=== PATIENT | male | born 1955 | race Caucasian/White ===

== ENCOUNTER 2017-02-28 17:27 | Observation (INO) | payer MEDICARE, OTHER ==
[2017-02-28] MEDS ORDERED: 0.9 % SODIUM CHLORIDE 1,000 ML IV ONE ×2 (17:36→18:58)
[2017-02-28 18:30] LABS: APPEARANCE,URINE Clear (CLEAR); COLOR,URINE Yellow (YELLOW); OCCULT BLOOD,URINE Negative (NEGATIVE); PH URINE 5.5 (5.0 - 8.0)
[2017-02-28 18:32] LABS: BASOPHILS % 0.5 (0.0-1.5); EOSINOPHILS % 0.4 % (0.0-6.8); MEAN CORPUSCULAR HEMOGLOBIN 29.6 pg (28.0-34.0); MEAN CORPUSCULAR VOLUME 86.5 fl (80.0-100.0); MONOCYTES % 3.5 % (0.0-11.0); NEUTROPHILS # 14.8 # k/uL (1.4-7.7)
[2017-02-28 18:41] LABS: eGFR (African) > 60; eGFR (Non-African) > 60
[2017-02-28] MEDS ORDERED: LISINOPRIL 20 MG TABLET PO ONE (21:44)
[2017-02-28 21:49] VITALS: BMI 38.0
--- NOTE | 2017-02-28 22:07 | ED Physician Documentation ---
General Adult - HISTORIAN Historian: patient - HPI Stated Complaint: found with altered mental status Chief Complaint: General Adult Onset: hours Timing: better Further Comments: yes (61 year old male patient brought in via [facility]. Neighbor found patient on the floor at home unresponsive and called 911 around 1700. Patient states he remembers taking a shower between 2765-2150 and sitting in the reclincer. On arrival, patient refused all treatments, IV and lab. Risks and benifits discussed.) - ROS CONST: no problems EYES/ENT: none CVS/RESP: none GI/: none MS/SKIN/LYMPH: none NEURO/PSYCH: fainting, other (All systems negative per patient). denies: headache, dizziness - PAST HX Past History: hypertension Other History: diabetes Type 2, other (dementia) Allergies/Adverse Reactions: Allergies Allergy/AdvReac Type Severity Reaction Status Date / Time Penicillins Allergy Verified 02/28/17 17:36 Home Medications: Ambulatory Orders Medication Instructions Recorded Insulin Aspart [Novolog] 65 units SQ AC15 04/30/14 Lisinopril [Lisinopril] 40 mg PO D 04/30/14 Canagliflozin [Invokana] 300 mg PO DAILY 02/28/17 Duloxetine HCl [Duloxetine HCl] 40 mg PO DAILY 02/28/17 Hydrochlorothiazide [Hydrodiuril] 12.5 mg PO DAILY 02/28/17 Insulin Glargine,Hum.rec.anlog 60 units SUBCUT BID 02/28/17 [Lantus Solostar] Memantine HCl [Memantine HCl] 10 mg PO BID 02/28/17 Metoprolol Tartrate [Lopressor] 25 mg PO BID 02/28/17 Pravastatin Sodium [Pravastatin 40 mg PO DAILY 02/28/17 Sodium] Zonisamide [Zonegran] 100 mg PO HS 02/28/17 - SOCIAL HX Smoking History: cigarettes - FAMILY HX Family History: No - VITAL SIGNS Vital Signs: Vital Signs Temp Pulse Resp BP Pulse Ox 97.7 F 89 18 183/85 95 02/28/17 19:39 02/28/17 19:39 02/28/17 19:39 02/28/17 19:39 02/28/17 19:39 - REVIEWED ASSESSMENTS Nursing Assessment Reviewed: Yes Vitals Reviewed: Yes Progress - Progress Progress: Brother and sister in law at bedside, patient much more cooperative, agreed to lab and IV. patient reports he is in a study at the [facility], "keep my blood sugars in the 50s" Reviewed lab results with patient, recommended admission or transfer to [facility] for further monitoring and IV fluids. Patient refused transfer. Will admit at [facility]. - EKG/XRAY/CT EKG: rhythm (SR, no acute changes. ) ED Results Lab/Radiology - Lab Results Lab Results: Lab Results 02/28/17 02/28/17 02/28/17 18:15 18:15 18:15 WBC 16.74 K/ul H K/ul (4.00-12.00) RBC 5.39 M/ul H M/ul (3.90-5.20) Hgb 15.9 g/dL g/dL (12.0-18.0) Hct 46.7 % % (37.0-53.0) MCV 86.5 fl fl (80.0-100.0) MCH 29.6 pg pg (28.0-34.0) MCHC 34.2 g/dL g/dL (30.0-36.0) RDW 13.4 % % (11.3-14.3) Plt Count 227 K/mm3 K/mm3 (130-400) Neut % (Auto) 88.3 % H % (39.0-79.0) Lymph % (Auto) 6.7 % L % (16.0-50.0) [place] % (Auto) 3.5 % % (0.0-11.0) Eos % (Auto) 0.4 % % (0.0-6.8) Baso % (Auto) 0.5 (0.0-1.5) Neut # (Auto) 14.8 # k/uL H # k/uL (1.4-7.7) Lymph # (Auto) 1.1 # k/uL # k/uL (0.6-4.0) [place] # (Auto) 0.6 # k/uL # k/uL (0.0-0.9) Eos # (Auto) 0.1 # k/uL # k/uL (0.0-0.6) Baso # (Auto) Pending Reactive Lymphs % 0.7 % % (0.0-5.0) Reactive Lymphs # 0.1 # k/uL # k/uL (0.0-0.8) Sodium 136 mmol/L mmol/L (136-145) Potassium 3.8 mmol/L mmol/L (3.5-5.0) Chloride 102 mmol/L mmol/L (98-110) Carbon Dioxide 22 mmol/L mmol/L (20-32) BUN 19 mg/dL mg/dL (10-26) Creatinine 0.8 mg/dL mg/dL (0.4-1.5) Estimated Creat Clear 178 Est GFR ( Amer) > 60 (60 - ) Est GFR (Non-Af Amer) > 60 (60 - ) Glucose 106 mg/dL H mg/dL (70-99) Calcium 10.3 mg/dL mg/dL (8.5-10.5) Total Bilirubin 0.5 mg/dL mg/dL (0.2-1.2) AST 36 U/L U/L (0-41) ALT 38 U/L U/L (0-45) Alkaline Phosphatase 105 U/L U/L (46-116) Creatine Kinase 656 U/L H U/L (0-225) Troponin I < 0.03 ng/mL L ng/mL (0.03-0.06) Total Protein 8.3 g/dL g/dL (6.0-8.5) Albumin 5.1 g/dL g/dL (3.0-5.5) Urine Color Urine Appearance Urine pH Ur Specific [place] Urine Protein Urine Ketones Urine Occult Blood Urine Nitrite Urine Bilirubin Urine Urobilinogen Ur Leukocyte Esterase Urine Glucose 02/28/17 18:15 WBC RBC Hgb Hct MCV MCH MCHC RDW Plt Count Neut % (Auto) Lymph % (Auto) [place] % (Auto) Eos % (Auto) Baso % (Auto) Neut # (Auto) Lymph # (Auto) [place] # (Auto) Eos # (Auto) Baso # (Auto) Reactive Lymphs % Reactive Lymphs # Sodium Potassium Chloride Carbon Dioxide BUN Creatinine Estimated Creat Clear Est GFR ( Amer) Est GFR (Non-Af Amer) Glucose Calcium Total Bilirubin AST ALT Alkaline Phosphatase Creatine Kinase Troponin I Total Protein Albumin Urine Color Yellow (YELLOW) Urine Appearance Clear (CLEAR) Urine pH 5.5 (5.0 - 8.0) Ur Specific [place] 1.020 (1.010-1.030) Urine Protein Trace mg/dL mg/dL (NEGATIVE) Urine Ketones Negative mg/dL mg/dL (NEGATIVE) Urine Occult Blood Negative (NEGATIVE) Urine Nitrite Negative (NEGATIVE) Urine Bilirubin Negative (NEGATIVE) Urine Urobilinogen 1.0 Eu Eu (0.2-1.0) Ur Leukocyte Esterase Negative (NEGATIVE) Urine Glucose 2+ mg/dL H mg/dL (NEGATIVE) - Orders Orders: ED Orders Category Date Time Status Continuous EKG monitoring Q2 Care 02/28/17 17:36 Active Continuous Pulse Oximetry Q4 Care 02/28/17 17:[address] IV Lock 1T Care 02/28/17 17:36 Active CBC/PLATELET/DIFF Stat Lab 02/28/17 18:15 Results CMP Stat Lab 02/28/17 18:15 Completed CREATINE KINASE Stat Lab 02/28/17 18:15 Completed TROPONIN I (cTnI) Stat Lab 02/28/17 18:15 Completed UA W/MICRO IF INDICATED Stat Lab 02/28/17 18:15 Completed 0.9 % Sodium Chloride [Normal Saline] 1,000 ml Med 02/28/17 17:36 Discontinued IV NOW 0.9 % Sodium Chloride [Normal Saline] 1,000 ml Med 02/28/17 18:58 Active IV NOW EKG WITH COMPARISON Stat Ther 02/28/17 18:44 Ordered General Adult Physical Exam - PHYSICAL EXAM GENERAL APPEARANCE: mild distress EENT: eye inspection normal, ENT inspection normal, pharynx normal, no signs of dehydration, SACHIN, no nystagmus, TM's nml RESPIRATORY: no resp distress, chest non-tender, breath sounds normal CVS: reg rate & rhythm, heart sounds normal, equal pulses, no murmur, no gallop , PMI nml, no JVD, no friction rub, 24 ABDOMEN: soft, no organomegaly, normal bowel sounds, no abdominal bruit, no distension BACK: normal inspection, no CVA tenderness SKIN: normal color, diaphoresis EXTREMITIES: non-tender, normal range of motion, no evidence of injury, no edema , J, 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 NEURO: oriented X3, motor nml, sensation nml, mood/affect nml (uncooperative) Discharge Clincal Impression: Rhabdomyolysis Qualifiers: Rhabdomyolysis type: non-traumatic Qualified Code(s): M62.82 - Rhabdomyolysis Syncope Qualifiers: Syncope type: unspecified Qualified Code(s): R55 - Syncope and collapse Diabetes Qualifiers: Diabetes mellitus type: type 2 Diabetes mellitus complication status: with hypoglycemia Diabetes mellitus complication detail: without coma Diabetes mellitus long term acute care registered nurse insulin use: with long term acute care registered nurse use Qualified Code(s): E11.649 - Type 2 diabetes mellitus with hypoglycemia without coma; Z79.4 - long term acute care registered nurse ( current) use of insulin Home Medications: Ambulatory Orders Insulin Aspart [Novolog] 65 units SQ AC15 04/30/14 Lisinopril [Lisinopril] 40 mg PO D 04/30/14 Canagliflozin [Invokana] 300 mg PO DAILY 02/28/17 Duloxetine HCl [Duloxetine HCl] 40 mg PO DAILY 02/28/17 Hydrochlorothiazide [Hydrodiuril] 12.5 mg PO DAILY 02/28/17 Insulin Glargine,Hum.rec.anlog [Lantus Solostar] 60 units SUBCUT BID 02/28/17 Memantine HCl [Memantine HCl] 10 mg PO BID 02/28/17 Metoprolol Tartrate [Lopressor] 25 mg PO BID 02/28/17 Pravastatin Sodium [Pravastatin Sodium] 40 mg PO DAILY 02/28/17 Zonisamide [Zonegran] 100 mg PO HS 02/28/17 Disposition: ADMITTED INPATIENT Decision to Admit: [id number] Decision Time: 19:15
[2017-03-01] MEDS ORDERED: METOPROLOL TARTRATE 50 MG TABLET ONE (02:13)
[2017-03-01 05:40] VITALS: BP 155/73
[2017-03-01 06:42] LABS: BASOPHILS % 0.7 (0.0-1.5); EOSINOPHILS % 2.2 % (0.0-6.8); MEAN CORPUSCULAR HEMOGLOBIN 29.6 pg (28.0-34.0); MEAN CORPUSCULAR VOLUME 88.5 fl (80.0-100.0); NEUTROPHILS # 6.7 # k/uL (1.4-7.7)
[2017-03-01 07:01] LABS: eGFR (African) > 60; eGFR (Non-African) > 60
[2017-03-01] MEDS ORDERED: INSULIN ASPART SQ SCH (07:45)
--- NOTE | 2017-03-01 08:11 | Discharge Summary ---
Discharge Summary - Discharge Sumary History of Present Illness: 61 year old male patient brought in via [facility]. Neighbor found patient on the floor at home unresponsive and called 911 around 1700. Patient states he remembers taking a shower between [id number] and sitting in the recliner. Patient is not for sure when he blacked out and fell on the floor. I snot sure how long he was on the floor for. When EMS arrived blood sugar was 47. Patient states that this is not to low for him. He has had a pancreatic malignancy removed and has been instructed to try to keep his blood sugar around 50-70. Patient states that he parish rare hypoglycemic episodes. Patient has a history of seizures. Has had a CVA several years ago and it is believed this is the etiology of his seizures. Is currently seeing a neurologist for theses and is taking his anticonvulsant medication. He believes that a seizure is the reason he had a syncopal episode and fell to the floor. Patient denies any cardiac problems. Has a history of stable thoracic aortic aneurysm. Patient had a mildly elevated CPK and was admitted to observation to watch for developing rhabdomyolisis. Condition at Discharge: Stable Home Medications: Ambulatory Orders Medication Instructions Recorded Insulin Aspart [Novolog] 65 units SQ AC15 04/30/14 Lisinopril 40 mg PO D 04/30/14 Canagliflozin [Invokana] 300 mg PO DAILY 02/28/17 Duloxetine HCl 40 mg PO DAILY 02/28/17 Hydrochlorothiazide [Hydrodiuril] 12.5 mg PO DAILY 02/28/17 Insulin Glargine,Hum.rec.anlog 60 units SUBCUT BID 02/28/17 [Lantus Solostar] Memantine HCl 10 mg PO BID 02/28/17 Metoprolol Tartrate [Lopressor] 25 mg PO BID 02/28/17 Pravastatin Sodium [Pravastatin 40 mg PO DAILY 02/28/17 Sodium] Zonisamide [Zonegran] 100 mg PO HS 02/28/17 Consultations this Visit: None Procedures this Visit: None Allergies/Adverse Reactions: Allergies Allergy/AdvReac Type Severity Reaction Status Date / Time Penicillins Allergy Verified 02/28/17 17:36 Discharge Summary: Patient did well during his hospital stay. On the morning of discharge patient denies any does have any muscle aches or pains. Patient CPK remains stable in the 600s. Patient is not have any friends or lesvia colored urine. Patient's blood sugars did remain low in the 70s. Patient states that this is where he is trying to keep his blood sugars. Patient was advised to be did not have the exact insulin that he was taking at home. When he found out that we be using a substitute he refused to have the insulin given here because he says he's had adverse reactions with it. Patient states that he was given his insulin at home. Patient was subsequently discharged in stable condition. Patient was advised to contact his neurologist and his architectural modeler to look at possible ideologies of why he had a syncopal episode. Was advised of had any further problems to call or return to the ED. - Final Diagnosis (1) Rhabdomyolysis Problems: CPK is stable (2) Syncope Problems: No further episodes. No seizure activity noted. Patient advised not to drive if he is having seizures. Patient has appointment with neurologist later this month. Advised to continue with current anticonvulsant. (3) Diabetes Problems: Advised to contact his provider who is managing his diabetes to make sure that no further adjustments in his medications need to be done at this time.
[2017-03-01] MEDS ORDERED: INSULIN DETEMIR 100 UNIT/ML 3ML PEN.INJCTR SQ SCH (09:00)
[2017-03-01] MEDS ORDERED: MEMANTINE HCL 10 MG TABLET PO SCH (09:00)
[2017-03-01] MEDS ORDERED: INSULIN GLARGINE HUM REC ANLOG 60 UNIT SUBCUT SCH (09:00)
[2017-03-01] MEDS ORDERED: METOPROLOL TARTRATE 25 MG TABLET PO SCH (09:00)
[2017-03-01] MEDS ORDERED: INSULIN LISPRO 100 UNIT/ML 3ML VIAL SQ SCH (09:00)
[2017-03-01] MEDS ORDERED: HYDROCHLOROTHIAZIDE 25 MG TABLET PO SCH (09:00)
[2017-03-01] MEDS ORDERED: ZONISAMIDE 100 MG PO SCH (21:00)
== END 2017-03-01 10:00 | disposition home or self-care (01) ==
LOC: ED 17:27 → SOUTH 19:00 → INTOOBSV 19:22 → SOUTH 19:22
PROVIDERS: ADMIT Emergency Medicine; ATTEND Emergency Medicine
DX: M62.82 Rhabdomyolysis (principal); R55 Syncope and collapse; E11.649 Type 2 diabetes mellitus with hypoglycemia without coma
CPT/HCPCS: 36415; 80053; 81002; 82550; 84484; 85025; 93005; G0378; J7030; 96360; 99284; G0379; S1016

== ENCOUNTER 2017-12-11 18:32 | Emergency (ER) | payer MEDICARE, OTHER ==
--- NOTE | 2017-12-11 19:37 | ED Physician Documentation ---
Seizure - HISTORIAN Historian: patient, friend - HPI Stated Complaint: Syncopal episode with Blood Sugar of 35 by EMS Chief Complaint: Seizure Additional Information: SEIZURE AT HOME [id number] W/ BS=35 PER EMS-GAVE 50CC 50%D/W BS TO 85 THEN ON ARRIVAL HERE BS=94. PT NOW ALERT ORIENTED. PT STATES HAD CVA BRAINSTEM 2007 WHICH LED TO RECURENT SEIZURES-TX W/ZONASIMIDE-[facility] [place]. PT STATES MORE FORGETFUL SINCE CVA. Timing/Onset/Duration: unknown duration (SUSPECT APPROX 1700HRS. HIS BS EARLIER TODAY WAS USUAL-160') Last known Well Date: 12/11/17 Last Known Well Time: 16:00 Last known Well Code/Unknown Code: Known Witnessed By: friend Preceding Symptoms: none, other (ATE MORE THAN USUAL AROUND 1600HRS) Character of Seizure(s): unresponsiveness, "shaking all over", incontinence of urine. denies: incontinence of stool, stopped breathing, lost pulse Postictal Symptoms: confusion (VERY SLIGHT-COHERENT ON ARRIVAL HOSPITAL) Location of Injury: none - ROS NEURO/PSYCH: other (PERHAPS SLIGHT POST ICTAL SHORT TIME PER EMS). denies: headache EYES/ENT: denies: problems with vision CVS/RESP: none GI/: denies: nausea, vomiting MS/SKIN/LYMPH: none - PAST HX Previous seizure/seizure disorder: frequent, long-standing (SINCE CVA 2007) Etiology: prior stroke Other History: diabetes Type 1, other (HTN DIABETES X 20 YRS-APPARENTLY BRITTLE INSPITE OF PTS ASSURANCE OF DIETARY COMPLIANCE) Allergies/Adverse Reactions: Allergies Allergy/AdvReac Type Severity Reaction Status Date / Time Penicillins Allergy Verified 12/11/17 19:00 Home Medications: Ambulatory Orders Medication Instructions Recorded Lisinopril 40 mg PO D 04/30/14 Insulin Glargine,Hum.rec.anlog 60 units SUBCUT BID 02/28/17 [Lantus Solostar] Memantine HCl 10 mg PO BID 02/28/17 Metoprolol Tartrate [Lopressor] 25 mg PO BID 02/28/17 Insulin Lispro 3Ml [Humalog] 30 unit SQ AC15 12/11/17 Zonisamide [Zonegran] 100 mg PO QID 12/11/17 amLODIPine BESYLATE [Norvasc] 5 mg PO D 12/11/17 - SOCIAL HX Smoking History: non-smoker Alcohol Use: none Drug Use: none - FAMILY HX Family History: none - VITAL SIGNS Vital Signs: Vital Signs Temp Pulse Resp BP Pulse Ox 75 18 181/93 95 12/11/17 18:32 12/11/17 18:32 12/11/17 18:32 12/11/17 18:32 - REVIEWED ASSESSMENTS Nursing Assessment Reviewed: Yes Vitals Reviewed: Yes ED Results Lab/Radiology - Orders Orders: ED Orders Category Date Time Status CBC/PLATELET/DIFF Routine Lab 12/11/17 Ordered CMP Routine Lab 12/11/17 Ordered GLYCOHEMOGLOBIN A1C with eAG Routine Lab 12/11/17 Ordered ZONISAMIDE Stat Lab 12/11/17 Ordered EKG WITH COMPARISON Stat Ther 12/11/17 Ordered Seizure Physical Exam - Physical Exam General Appearance: mild distress (IMPROVING W/TIME DURING EXAMINATION) Altered Mental Status Higher Functions: alert, oriented x3, no evidence of acute CVA, mood/affect nml EENT: nml eye inspection Neck/Back: normal inspection Respiratory: no resp. distress, breath sounds nml CVS: reg rate & rhythm, heart sounds normal Abdomen: non-tender, no distention Skin: warm/dry, normal color. No: cyanosis, diaphoresis, jaundice, mottled Extremities: No: normal range of motion (MODERATE DJD-NEUROLOGICALLY APPEARS NORMAL-NO PRONATOR DRIFT CAN HEEL TO KNEE TO TOE SATIS) Observed Seizure Activity in ED: generalized (BUT GONE ON EMD ARRIVAL) - Nexus Criteria Neg Nexus Criteria: Nexus criteria neg. denies: midline tenderness, distracting injury Discharge Clincal Impression: seizure, hypoglycemia-brittle diabetes 1 Referrals: Primary Doctor,No [Primary Care Provider] - 2 Days Comments: home f/u w/neurologists Condition: Good Disposition: 01 HOME, SELF-CARE Decision to Admit: NO Decision Time: 20:23
[2017-12-11 19:53] LABS: BASOPHILS % 0.4 (0.0-1.5); EOSINOPHILS % 0.9 % (0.0-6.8); MEAN CORPUSCULAR HEMOGLOBIN 29.4 pg (28.0-34.0); MEAN CORPUSCULAR VOLUME 88.7 fl (80.0-100.0); MONOCYTES % 4.4 % (0.0-11.0); NEUTROPHILS # 8.2 # k/uL (1.4-7.7)
[2017-12-11 20:03] LABS: eGFR (African) > 60; eGFR (Non-African) > 60
[2017-12-11 22:26] VITALS: BP 179/86
== END 2017-12-11 20:44 | disposition home or self-care (01) ==
LOC: ED 18:32
DX: G40.909 Epilepsy, unspecified, not intractable, without status epilepticus (principal); E10.649 Type 1 diabetes mellitus with hypoglycemia without coma
CPT/HCPCS: 80053; 85025; 99284

== ENCOUNTER 2018-04-05 14:39 | Observation (INO) | payer MEDICARE, OTHER ==
[2018-04-05] MEDS ORDERED: DEXTROSE 50% 50 ML DISP.SYRIN IVP ONE (14:52)
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
[2018-04-05] MEDS ORDERED: 0.9 % SODIUM CHLORIDE 1,000 ML IV ONE (14:55)
[2018-04-05 15:20] LABS: BASOPHILS % 0.4 (0.0-1.5); EOSINOPHILS % 1.2 % (0.0-6.8); MEAN CORPUSCULAR HEMOGLOBIN 28.5 pg (28.0-34.0); MONOCYTES % 3.7 % (0.0-11.0); NEUTROPHILS # 8.6 # k/uL (1.4-7.7)
[2018-04-05 15:42] LABS: eGFR (Non-African) > 60
[2018-04-05] MEDS ORDERED: cefTRIAXone SODIUM 1 GM in 0.9 % SODIUM CHLORIDE 100 ML IV ONE (17:16)
[2018-04-05 17:41] LABS: APPEARANCE,URINE CLOUDY (CLEAR); COLOR,URINE AMBER (YELLOW)
[2018-04-05 17:42] LABS: CANNABINOIDS NEGATIVE ng/mL (< 50); METHYLENEDIOXYMETHAMPHETAMINE NEGATIVE ng/mL (<500)
[2018-04-05 17:42] LABS: OCCULT BLOOD,URINE TRACE-LYSED (NEGATIVE); PH URINE 5.5 (5.0 - 8.0); UROBILINOGEN URINE 0.2 Eu (0.2-1.0)
[2018-04-05] MEDS ORDERED: INSULIN REGULAR, HUMAN 100 UNIT/ML 3ML VIAL SQ ONE (17:46)
[2018-04-05] MEDS ORDERED: cefTRIAXone SODIUM 1 GM in 0.9 % SODIUM CHLORIDE 50 ML IV SCH (18:00)
[2018-04-05] MEDS ORDERED: METOPROLOL TARTRATE 25 MG TABLET ONE ×2 (18:22→21:18)
[2018-04-05] MEDS ORDERED: cefTRIAXone SODIUM 1 GM VIAL ONE (18:23)
[2018-04-05] MEDS: 0.9 % SODIUM CHLORIDE 1,000 ML IV SCH (18:35)
[2018-04-05] MEDS ORDERED: INSULIN REGULAR, HUMAN 100 UNIT/ML 3ML VIAL ONE (18:42)
[2018-04-05] MEDS: METOPROLOL TARTRATE 25 MG TABLET PO SCH (20:31)
[2018-04-05] MEDS ORDERED: HYDROCHLOROTHIAZIDE 25 MG TABLET PO ONE (21:18)
[2018-04-05] MEDS ORDERED: LISINOPRIL 20 MG TABLET ONE (21:19)
[2018-04-06 01:54] VITALS: BMI 37.8
[2018-04-06] MEDS: 0.9 % SODIUM CHLORIDE 1,000 ML IV SCH (04:55)
[2018-04-06 05:41] VITALS: BP 126/63
[2018-04-06 06:12] LABS: BASOPHILS % 0.8 (0.0-1.5); EOSINOPHILS % 2.3 % (0.0-6.8); MEAN CORPUSCULAR HEMOGLOBIN 28.6 pg (28.0-34.0); MEAN CORPUSCULAR VOLUME 84.4 fl (80.0-100.0); MONOCYTES % 5.1 % (0.0-11.0); NEUTROPHILS # 4.8 # k/uL (1.4-7.7)
[2018-04-06 06:17] LABS: eGFR (Non-African) > 60
[2018-04-06] MEDS: METOPROLOL TARTRATE 25 MG TABLET PO SCH (08:33)
[2018-04-06] MEDS ORDERED: LISINOPRIL 40 MG PO SCH (09:00)
[2018-04-06] MEDS ORDERED: amLODIPine BESYLATE 5 MG TABLET PO SCH (09:00)
[2018-04-06] MEDS ORDERED: GABAPENTIN 300 MG CAPSULE PO SCH (09:00)
[2018-04-06] MEDS ORDERED: HYDROCHLOROTHIAZIDE PO SCH (09:00)
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
== END 2018-04-06 09:35 | disposition home or self-care (01) ==
LOC: ED 14:39 → SOUTH 16:45
PROVIDERS: ADMIT Nurse Practitioner Family; ATTEND Nurse Practitioner Family
DX: E11.649 Type 2 diabetes mellitus with hypoglycemia without coma (principal); N39.0 Urinary tract infection, site not specified; R41.0 Disorientation, unspecified; G30.9 Alzheimer's disease, unspecified; F02.80 Dementia in other diseases classified elsewhere, unspecified severity, without behavioral disturbance, psychotic disturbance, mood disturbance, and anxiety
CPT/HCPCS: 80053; 81002; 85025; 85610; 87086; 87186; 93005; G0378; G0480; G0481; J0696; J1815; J7030; 80320; 80377; 96365; 96366; 96367; 96372; 96375; 99217; S1016

== ENCOUNTER 2018-05-16 15:48 | Emergency (ER) | payer MEDICARE, OTHER ==
[2018-05-16] MEDS ORDERED: DEXTROSE 50% 50 ML DISP.SYRIN IVP ONE (16:19)
[2018-05-16 17:00] LABS: eGFR (Non-African) > 60
--- NOTE | 2018-05-16 17:47 | ED Physician Documentation ---
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 Pt presents to the ED via POV with sig other c/o low blood sugar. per SO pt is confused. pt denies pain or injury. HPI limited upon presentation. POC Later pt was able to reports he takes regular insulin 50 units AC and Lantus BID. pt sees Dr Hester in [place]. pt reports often he has ketosis and loses consciousness. pt thinks he might have taken a double dose of his insulin. 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[employer]) Timing: still present Severity: moderate - ROS CONST: sweating, weakness EYES/ENT: none CVS/RESP: none GI/: none MS/SKIN/LYMPH: none NEURO/PSYCH: other (confusion a/ox 3 ) - PAST HX Past History: hypertension, other (DM2) Other History: diabetes Type 2 Surgeries/Procedures: other (pancreatic cyst ) - SOCIAL HX Smoking History: non-smoker - FAMILY HX Family History: Yes (DM2) - VITAL SIGNS Vital Signs: Vital Signs Temp Pulse Resp BP Pulse Ox 109 H 18 183/83 97 05/16/18 15:48 05/16/18 15:48 05/16/18 15:48 05/16/18 15:48 - REVIEWED ASSESSMENTS Nursing Assessment Reviewed: Yes Vitals Reviewed: Yes <Sandy Mosqueda - Last Filed: 05/16/18 19:02> - PAST HX Allergies/Adverse Reactions: Allergies Allergy/AdvReac Type Severity Reaction Status Date / Time Penicillins Allergy Verified 05/16/18 16:20 Home Medications: Ambulatory Orders Medication Instructions Recorded Lisinopril 40 mg PO D 04/30/14 Memantine HCl 10 mg PO BID 02/28/17 Insulin Lispro 3Ml [Humalog] 30 unit SQ AC15 12/11/17 Zonisamide [Zonegran] 100 mg PO QID 12/11/17 Canagliflozin [Invokana] 1 tab PO DAILY 04/05/18 Gabapentin [Neurontin] 1 tab PO DAILY 04/05/18 Hydrochlorothiazide [Hydrodiuril] 1 tab PO DAILY 04/05/18 amLODIPine BESYLATE [Norvasc] 2 tab PO DAILY 04/05/18 DULoxetine HCL [Cymbalta] 1 tab PO DAILY 05/16/18 Memantine HCl [Namenda] 1 tab PO BID 05/16/18 Pravastatin Sodium [Pravachol] 1 tab PO TID 05/16/18 Progress - Results/Orders Results/Orders: 1700- Pt fully back to baseline per SO. Pt able to answer questions appropriately. Last POC blood glucose 203. - Progress Progress: 1800 <Sandy Mosqueda - Last Filed: 05/16/18 19:02> ED Results Lab/Radiology - Lab Results Lab Results: Lab Results 05/16/18 Unknown Sodium 140 mmol/L mmol/L (136-145) Potassium 3.4 mmol/L L mmol/L (3.5-5.1) Chloride 116 mmol/L H mmol/L (98-107) Carbon Dioxide 23 mmol/L mmol/L (22-30) BUN 17 mg/dL mg/dL (9-20) Creatinine 0.70 mg/dL mg/dL (0.66-1.25) Estimated Creat Clear 196 Est GFR ( Amer) > 60 (60 - ) Est GFR (Non-Af Amer) > 60 (60 - ) Glucose 47 mg/dL L mg/dL (74-106) Calcium 9.3 mg/dL mg/dL (8.4-10.2) Total Bilirubin 0.4 mg/dL mg/dL (0.2-1.3) AST 28 U/L U/L (15-46) ALT 40 U/L U/L (13-69) Alkaline Phosphatase 89 U/L U/L (38-126) Total Protein 8.7 g/dL H g/dL (6.3-8.2) Albumin 4.6 g/dL g/dL (3.5-5.0) - Orders Orders: ED Orders Category Date Time Status Place IV Lock 1T Care 05/16/18 16:06 Active CBC REF Routine Lab 05/16/18 Received CMP Routine Lab 05/16/18 Completed UA [URINALYSIS] Routine Lab 09/25/18 Ordered Chem Sticks Med 05/17/18 07:30 Ordered 1 each MC CHEMX3 Dextrose 50% [Dextrose 50%-Water Syringe] Med 05/16/18 16:19 Discontinued 25 ml IVP NOW ONE <Michael Garcia - Last Filed: 05/16/18 18:12> - Lab Results Lab Results: Lab Results 05/16/18 Unknown Sodium 140 mmol/L mmol/L (136-145) Potassium 3.4 mmol/L L mmol/L (3.5-5.1) Chloride 116 mmol/L H mmol/L (98-107) Carbon Dioxide 23 mmol/L mmol/L (22-30) BUN 17 mg/dL mg/dL (9-20) Creatinine 0.70 mg/dL mg/dL (0.66-1.25) Estimated Creat Clear 196 Est GFR ( Amer) > 60 (60 - ) Est GFR (Non-Af Amer) > 60 (60 - ) Glucose 47 mg/dL L mg/dL (74-106) Calcium 9.3 mg/dL mg/dL (8.4-10.2) Total Bilirubin 0.4 mg/dL mg/dL (0.2-1.3) AST 28 U/L U/L (15-46) ALT 40 U/L U/L (13-69) Alkaline Phosphatase 89 U/L U/L (38-126) Total Protein 8.7 g/dL H g/dL (6.3-8.2) Albumin 4.6 g/dL g/dL (3.5-5.0) - Orders Orders: ED Orders Category Date Time Status Place IV Lock 1T Care 05/16/18 16:06 Active CBC REF Routine Lab 05/16/18 Received CMP Routine Lab 05/16/18 Completed UA [URINALYSIS] Routine Lab 05/16/18 Ordered Dextrose 50% [Dextrose 50%-Water Syringe] Med 05/16/18 16:19 Discontinued 25 ml IVP NOW ONE <Sandy Mosqueda - Last Filed: 05/16/18 19:02> General Adult Physical Exam - PHYSICAL EXAM GENERAL APPEARANCE: mild distress EENT: eye inspection normal, ENT inspection normal, pharynx normal, no signs of dehydration NECK: normal inspection, supple. No: lymphadenopathy, stiff neck RESPIRATORY: no resp distress, chest non-tender, breath sounds normal. No: wheezes, rales, rhonchi CVS: reg rate & rhythm, heart sounds normal, equal pulses, no murmur, no gallop ABDOMEN: soft, no organomegaly, normal bowel sounds, no distension, non-tender BACK: normal inspection SKIN: warm/dry, normal color, diaphoresis (mild ) EXTREMITIES: non-tender NEURO: oriented X3, motor nml, sensation nml, other (mild confusion ) <Sandy Mosqueda - Last Filed: 05/16/18 19:02> Discharge Decision to Admit: NO Date of Decison to Admit: 05/16/18 Decision Time: 18:12 <Michael Garcia - Last Filed: 05/16/18 18:12> <Sandy Mosqueda - Last Filed: 05/16/18 19:02> Clincal Impression: Hypoglycemia Referrals: Primary Doctor,No [Primary Care Provider] - 2 Days Additional Instructions: Take your insulin as prescribed. Make sure you eat tonight. Check your blood sugar several times tonight. Follow-up with your diabetic physician. Condition: Stable Disposition: 01 HOME, SELF-CARE
[2018-05-16 18:25] VITALS: BP 152/73
[2018-05-16 20:21] LABS: BASO % 0.8 % (0.0-1.5); EOS % 2.6 % (0.0-6.8); LYMPH ABS # 2.52 thou/uL (0.60-4.00); MCV 84.9 fL (80.0-100.0); MONOCYTE % 7.4 % (0.0-11.0); MONOCYTE ABS # 0.76 thou/uL (0.00-0.90); PLATELET COUNT 256 thou/uL (130-400)
== END 2018-05-16 18:20 | disposition home or self-care (01) ==
LOC: ED 15:48
DX: E16.2 Hypoglycemia, unspecified (principal)
CPT/HCPCS: 80053; 85025; 96374; 99284; S1016